=== PATIENT | male | born 1960 | race Caucasian/White ===

== ENCOUNTER 2023-09-20 11:58 | Emergency (ER) | payer SELFPAY ==
[2023-09-20] MEDS ORDERED: Sodium Chloride 0.9% 10 ML Syringe FLUSH PRN (13:12)
[2023-09-20 13:41] LABS: BASOPHILS ABSOLUTE AUTO 0.03 K/uL (0.00-0.10); BASOPHILS PERCENT AUTO 0.3 % (0.1-1.3); EOSINOPHILS PERCENT AUTO 0.9 % (0.0-5.4); HEMATOCRIT 40.4 % (38.4-49.7); HEMOGLOBIN 14.2 g/dL (12.9-16.9); IMMATURE GRAN ABSOLUTE AUTO 0.03 K/uL (0.00-0.23); IMMATURE GRAN PERCENT AUTO 0.3 % (0.0-0.7); LYMPHOCYTES ABSOLUTE AUTO 1.57 K/uL (0.8-3.3); LYMPHOCYTES PERCENT AUTO 14.2 % (11.4-47.7); MEAN CORPUSCULAR HEMOGLOBIN 30.9 pg (31.6-35.5); MEAN CORPUSCULAR HGB CONC 35.1 g/dL (31.6-35.5); MEAN CORPUSCULAR VOLUME 87.8 fL (81.4-99.0); MONOCYTES ABSOLUTE AUTO 0.76 K/uL (0.20-0.90); MONOCYTES PERCENT AUTO 6.9 % (3.3-12.6); NEUTROPHILS ABSOLUTE AUTO 8.53 K/uL (1.0-7.6); NEUTROPHILS PERCENT AUTO 77.4 % (40.0-78.1); PLATELET COUNT,PLT 201 K/uL (130-375)
[2023-09-20] MEDS ORDERED: Sodium Chloride 0.9% 50 ML IV ONE (13:57)
[2023-09-20] MEDS ORDERED: Iopamidol 612 MG/ML 100 ML Bottle IV ONE (13:57)
[2023-09-20] MEDS ORDERED: Sodium Chloride 0.9% 10 ML Syringe FLUSH ONE (13:57)
[2023-09-20 14:09] LABS: ALANINE AMINOTRANSFERASE,ALT 10 U/L (12-78); ALBUMIN 3.6 g/dL (3.4-5.0); ALKALINE PHOSPHATASE 56 U/L (46-116); ASPARTATE AMNIOTRANSFERASE,AST 14 U/L (15-37); BILIRUBIN TOTAL 0.4 mg/dL (0.2-1.0); BLOOD UREA NITROGEN,BUN 11 mg/dL (7-18); CALCIUM 9.1 mg/dL (8.5-10.1); CARBON DIOXIDE,CO2 26 mmol/L (21-32); CHLORIDE,CL 102 mmol/L (100-108); CREATININE 1.2 mg/dL (0.8-1.3); EST CRCL DRUG DOSING (CG) 70.28 mL/min; ESTIMATED GFR 68 mL/min (>60); GLUCOSE RANDOM 97 mg/dL (74-106); POTASSIUM,K 4.2 mmol/L (3.6-5.2); PROTEIN TOTAL,TP 7.2 g/dL (6.4-8.2); SODIUM,NA 137 mmol/L (140-148)
[2023-09-20 14:18] LABS: ANION GAP 13.2 mmol/L (5.0-14.0)
[2023-09-20] MEDS ORDERED: Magnesium Citrate Solution 296 ML Bottle PO ONE (15:05)
== END 2023-09-20 15:21 | disposition home or self-care (01) ==
LOC: JP.ED 11:58
DX: K63.89 Other specified diseases of intestine (principal); F17.210 Nicotine dependence, cigarettes, uncomplicated
CPT/HCPCS: 36415; 74177; 74177-26; 80053; 83605; 85025; 99284; A9270-GY; J3490; Q9967

== ENCOUNTER 2023-09-27 07:44 | Day surgery (SDC) | payer MEDICAID ==
[~2023-09-27 07:44] MED LIST: Lactated Ringers 1,000 ML IV SCH; Midazolam 1 MG/ML 2 ML SDV ONE; Propofol 200 MG/20 ML SDV ONE; fentaNYL 50 MCG/ML SDV ONE
[2023-09-27] MEDS ORDERED: Propofol 200 MG/20 ML SDV ONE (08:48)
[2023-09-27] MEDS ORDERED: Lactated Ringers 1,000 ML IV SCH (09:00)
[2023-09-28 23:07] LABS: CARCINOEMBRYONIC ANTIGEN 2.1 ng/mL (<=3.8)
== END 2023-09-27 10:35 | disposition home or self-care (01) ==
LOC: JP.SDS 07:44
PROVIDERS: ATTEND Student in an Organized Health Care Education/Training Program
DX: D12.0 Benign neoplasm of cecum (principal); D12.5 Benign neoplasm of sigmoid colon; K57.30 Diverticulosis of large intestine without perforation or abscess without bleeding; F17.200 Nicotine dependence, unspecified, uncomplicated
CPT/HCPCS: 36415; 45380; 45385; 82378; J2250; J2704; J3010; J7120; 88305